=== PATIENT | male | born 1955 | race Caucasian/White ===

== ENCOUNTER 2017-09-22 09:49 | Observation (INO) | payer OTHER ==
[2017-09-22] MEDS ORDERED: HEMOQUE TEST 1 EACH EACH ONE ×2 (10:34→10:38)
[2017-09-22] MEDS ORDERED: HEMOQUE CONTROL SOLUTION ONE (10:34)
[2017-09-22] MEDS ORDERED: morphine CARPU-JECT 4 MG/1 ML DISP.SYRIN IVPUSH ONE ×2 (10:36→11:31)
[2017-09-22] MEDS ORDERED: SODIUM CHLORIDE 1,000 ML IV ONE (10:39)
[2017-09-22] MEDS ORDERED: ONDANSETRON 4 MG/2 ML VIAL IVPUSH ONE ×2 (10:39→11:20)
--- NOTE | 2017-09-22 10:43 | PDOC ---
History of Present Illness - General History Source: Patient Exam Limitations: No Limitations - History of Present Illness Initial Comments: 09/22/17 15:14 62 y.o morbidly obese male with PMH of HTN, HLD, DM, and appendectomy, who presents to the emergency room complaining of severe epigastric abdominal pain. He denies nausea, vomiting, diarrhea. Denies fever, chills. Denies sick contact. Denies recent travel. Allergies: penicillin <Amy Bonner - Last Filed: 09/22/17 16:22> <Lesly Flaherty S - Last Filed: 09/22/17 18:59> - General Chief Complaint: Pain Stated Complaint: UPPER ABDOMINAL PAIN Time Seen by Provider: 09/22/17 09:54 Past History <Amy Bonner - Last Filed: 09/22/17 16:22> - Past Medical History COPD: No Diabetes: Yes HTN: Yes Hypercholesterolemia: Yes Other medical history: GOUT? - Suicide/Smoking/Psychosocial Hx Smoking History: Never smoked Have you smoked in the past 12 months: No Hx Alcohol Use: Yes (ONCE A MONTH) Drug/Substance Use Hx: No Substance Use Type: None <Lesly Flaherty S - Last Filed: 09/22/17 18:59> - Past Medical History Allergies/Adverse Reactions: Allergies Allergy/AdvReac Type Severity Reaction Status Date / Time Penicillins Allergy Verified 09/29/14 18:08 Home Medications: Ambulatory Orders Aspirin Coated [Ecotrin -] 81 mg PO HS 09/22/17 Atorvastatin Ca [Lipitor] 40 mg PO HS 09/22/17 Insulin Detemir [Levemir Flextouch] 100 unit SQ BID 09/22/17 Metformin HCl [Glucophage] 1,000 mg PO BID 09/22/17 Valsartan/Hydrochlorothiazide [Valsartan-Hctz 160-25 mg Tab] 1 each PO HS Review of Systems - Review of Systems Able to Perform ROS?: Yes Comments:: 09/22/17 15:15 CONSTITUTIONAL: Absent: fever, no chills, no fatigue EYES: Absent: visual changes ENT: Absent: ear pain, no sore throat CARDIOVASCULAR: Absent: chest pain, no palpitations RESPIRATORY: Absent: cough, no SOB GI: +epigastric pain. Absent: no nausea, no vomiting, no constipation, no diarrhea GENITOURINARY: Absent: dysuria, no frequency, no hematuria MUSCULOSKELETAL: Absent: back pain, no arthralgia, no myalgia SKIN: Absent: rash <Amy Bonner - Last Filed: 09/22/17 16:22> *Physical Exam - Vital Signs Last Vital Signs Temp Pulse Resp BP Pulse Ox 97.9 F 68 15 173/76 98 09/22/17 09:51 09/22/17 12:25 09/22/17 12:25 09/22/17 12:25 09/22/17 12:25 - Physical Exam Comments: 09/22/17 15:15 GENERAL: Well-appearing, well-nourished. In moderate distress, morbidly obese HEENT: Normocephalic, atraumatic. PERRL, EOM intact. CARDIOVASCULAR: Normal S1, S2. Regular rate and rhythm. PULMONARY: Clear to auscultation bilaterally. ABDOMEN: Protuberant belly. Soft, non-distended, non-tender. EXTREMITIES: Femoral artery pulsations equal. Radial pulses equal. Normal ROM in all four extremities. No gross deformities. SKIN: Warm, dry. No rash NEUROLOGICAL: No focal neurological deficits. <Amy Bonner - Last Filed: 09/22/17 16:22> - Vital Signs Last Vital Signs Temp Pulse Resp BP Pulse Ox 97.9 F 55 L 17 188/98 99 09/22/17 09:51 09/22/17 09:51 09/22/17 09:51 09/22/17 09:51 09/22/17 09:51 <Lesly Flaherty S - Last Filed: 09/22/17 18:59> Heart Score/ECG Review #1 General ECG Interpretation: Sinus Rhythm, Normal Rate <Amy Bonner - Last Filed: 09/22/17 16:22> ED Treatment Course - LABORATORY CBC & Chemistry Diagram: 09/22/17 10:20 09/22/17 10:20 - ADDITIONAL ORDERS Additional order review: Laboratory Results 09/22/17 09/22/17 09/22/17 11:00 10:43 10:20 PT with INR INR Sodium Potassium Chloride Carbon Dioxide Anion Gap BUN Creatinine Creat Clearance w eGFR POC Glucometer 202.58669 Random Glucose Calcium Total Bilirubin AST ALT Alkaline Phosphatase Troponin I Total Protein Albumin Total Amylase 58 Lipase 160 Urine Color Yellow Urine Appearance Clear Urine pH 5.0 Ur Specific [place] 1.025 Urine Protein Negative Urine Glucose (UA) Trace Urine Ketones Negative Urine Blood Negative Urine Nitrite Negative Urine Bilirubin Negative Urine Urobilinogen 0.2 Ur Leukocyte Esterase Negative 09/22/17 09/22/17 09/22/17 10:20 10:20 10:20 PT with INR 11.0 INR 0.98 Sodium 136 Potassium 4.6 Chloride 102 Carbon Dioxide 24 Anion Gap 10 BUN 22 H D Creatinine 1.0 Creat Clearance w eGFR > 60 POC Glucometer Random Glucose 194 H D Calcium 9.5 Total Bilirubin 1.0 AST 31 D ALT 27 Alkaline Phosphatase 59 Troponin I < 0.03 L Total Protein 7.5 Albumin 4.2 Total Amylase Lipase Urine Color Urine Appearance Urine pH Ur Specific [place] Urine Protein Urine Glucose (UA) Urine Ketones Urine Blood Urine Nitrite Urine Bilirubin Urine Urobilinogen Ur Leukocyte Esterase 09/22/17 09/22/17 10:43 10:20 RBC 4.76 MCV 87.3 MCHC 33.6 RDW 12.6 MPV 8.9 D Neutrophils % 75.3 Lymphocytes % 15.6 Monocytes % 5.5 Eosinophils % 2.6 Basophils % 1.0 POC Glucometer 202.88598 - Medications Given in the ED: ED Medications Discontinued Medications Generic Name Dose Route Start Last Admin Trade Name Freq PRN Reason Stop Dose Admin Sodium Chloride 1,000 mls @ 1,000 mls/hr 09/22/17 10:39 09/22/17 10:40 Normal Saline - IV 09/22/17 11:38 1,000 mls/hr .Q1H ONE Administration Morphine Sulfate 4 mg 09/22/17 10:36 09/22/17 10:45 Morphine Injection - IVPUSH 09/22/17 10:37 4 mg ONCE ONE Administration Morphine Sulfate 4 mg 09/22/17 11:31 09/22/17 11:37 Morphine Injection - IVPUSH 09/22/17 11:32 4 mg NOW ONE Administration Ondansetron HCl 4 mg 09/22/17 10:39 09/22/17 10:50 Zofran Injection IVPUSH 09/22/17 10:40 4 mg ONCE ONE Administration Ondansetron HCl 4 mg 09/22/17 11:20 09/22/17 11:21 Zofran Injection IVPUSH 09/22/17 11:21 4 mg NOW ONE Administration <Amy Bonner - Last Filed: 09/22/17 16:22> - LABORATORY CBC & Chemistry Diagram: 09/22/17 10:20 09/22/17 10:20 <Lesly Flaherty - Last Filed: 09/22/17 18:59> Medical Decision Making - Critical Care Time Total Critical Care Time (minutes): 30 Critical Care Statement: The care of this patient involved high complexity decision making to prevent further life threatening deterioration of the patient 's condition and/or to evaluate & treat vital organ system(s) failure or risk of failure. - Medical Decision Making 09/22/17 15:16 rule out aortic dissection - Give Morphine IV fluids and zofran - Ordered CT Patient states that he felt more stable after medications and fluids Received the CT at 2:15pm that was negative for aortic dissection and anything of acute significance. <Amy Bonner - Last Filed: 09/22/17 16:22> *DC/Admit/Observation/Transfer - Attestations Scribe Attestion: 09/22/17 15:22 Documentation prepared by DENISE Ernst, acting as medical registrar for Lesly Flaherty MD. <Amy Bonner - Last Filed: 09/22/17 16:22> - Discharge Dispostion Admit: Yes <Lesly Flaherty - Last Filed: 09/22/17 18:59> Diagnosis at time of Disposition: Diabetes 1.5, managed as type 2, Morbid obesity Abdominal pain Qualifiers: Abdominal location: generalized Qualified Code(s): R10.84 - Generalized abdominal pain - Discharge Dispostion Condition at time of disposition: Stable
[2017-09-22] MEDS ORDERED: ONDANSETRON 4 MG/2 ML VIAL ONE ×2 (10:46→11:21)
[2017-09-22] MEDS ORDERED: morphine SULFATE 4 MG/ML VIAL ONE ×2 (10:46→11:31)
[2017-09-22 11:07] LABS: EOSINOPHIL 2.6 % (0-4.5); MCH 29.3 pg (25.7-33.7); MCHC 33.6 g/dl (32.0-35.9); MEAN CELL VOLUME 87.3 fl (80-96); MEAN PLT VOLUME 8.9 fl (7.5-11.1); NEUTROPHILS 75.3 % (42.8-82.8); PLATELET COUNT 273 K/MM3 (134-434); RDW 12.6 % (11.9-15.9); WHITE BLOOD COUNT 9.8 K/mm3 (4.0-10.8)
[2017-09-22 11:22] LABS: URINE APPEARANCE Clear; URINE BILIRUBIN Negative (NEGATIVE); URINE BLOOD Negative (NEGATIVE); URINE GLUCOSE (UA) Trace (NEGATIVE); URINE KETONE Negative (NEGATIVE); URINE LEUK ESTERASE Negative (NEGATIVE); URINE NITRITE Negative (NEGATIVE); URINE PROTEIN Negative (NEGATIVE); URINE UROBILINOGEN 0.2 (0.2-1.0)
[2017-09-22 11:24] LABS: URINE COLOR YELLOW
[2017-09-22 11:28] LABS: INR 0.98 (0.82-1.09)
[2017-09-22 12:07] LABS: ALBUMIN 4.2 g/dl (3.5-5.0); ALK PHOS 59 U/L (32-92); ANION GAP 10 (8-16); CALCIUM 9.5 mg/dl (8.4-10.2); CO2 24 mmol/L (22-28); GLUCOSE,RANDOM 194 mg/dl (74-106); SGOT/AST 31 U/L (10-42); SGPT/ALT 27 U/L (10-40); TOT PROT 7.5 g/dl (6.4-8.3)
[2017-09-22 12:09] LABS: AMYLASE 58 U/L (25-125)
[2017-09-22 18:22] VITALS: BMI 44.4
[2017-09-22] MEDS ORDERED: PNEUMOC 13-VAL CONJ-DIP CRM/PF 0.5 ML DISP.SYRIN IM ONE (18:22)
--- NOTE | 2017-09-22 19:41 | HP ---
CHIEF COMPLAINT: Abdominal Pain PCP: Dr. Letty Cat HISTORY OF PRESENT ILLNESS: This is a 62 y/o man with a past medical history of HTN, HLD, Severe Obesity. Who presents to the ED with abdominal pain, fever, loose stools x today. Patient reports that the pain was sharp, intermittent. Patient denies Chest pain or SOB. He does note having peripheral lower extremity edema. Patient ER course was notable for: (1) CTA- No aortic disection, diffuse hepatic steatosis, mild splenomegaly (2) Troponin- < 0.03 (3) Glucose 190 Recent Travel: None PAST MEDICAL HISTORY: See HPI PAST SURGICAL HISTORY: Social History: Smoking: Never Alcohol: Seldom Drugs: None Lives with , Independent Family History: Mother: Diabetes, Obesity, Cancer- ?Gastric Allergies Penicillins Allergy (Verified 09/29/14 18:08) RASH HOME MEDICATIONS: Home Medications Medication Instructions Recorded Aspirin Coated [Ecotrin -] 81 mg PO HS 09/22/17 Atorvastatin Ca [Lipitor] 40 mg PO HS 09/22/17 Insulin Detemir [Levemir Flextouch] 100 unit SQ BID 09/22/17 Metformin HCl [Glucophage] 1,000 mg PO BID 09/22/17 Valsartan/Hydrochlorothiazide 1 each PO HS 09/22/17 [Valsartan-Hctz 160-25 mg Tab] REVIEW OF SYSTEMS CONSTITUTIONAL: fever, Absent: chills, diaphoresis, generalized weakness, malaise, loss of appetite, weight change HEENT: Absent: rhinorrhea, nasal congestion, throat pain, throat swelling, difficulty swallowing, mouth swelling, ear pain, eye pain, visual changes CARDIOVASCULAR: Absent: chest pain, syncope, palpitations, irregular heart rate, lightheadedness , peripheral edema RESPIRATORY: Absent: cough, shortness of breath, dyspnea with exertion, orthopnea, wheezing, stridor, hemoptysis GASTROINTESTINAL: abdominal pain, diarrhea Absent: abdominal distension, nausea, vomiting, constipation, melena, hematochezia GENITOURINARY: Absent: dysuria, frequency, urgency, hesitancy, hematuria, flank pain, genital pain MUSCULOSKELETAL: Absent: myalgia, arthralgia, joint swelling, back pain, neck pain SKIN: Absent: rash, itching, pallor HEMATOLOGIC/IMMUNOLOGIC: Absent: easy bleeding, easy bruising, lymphadenopathy, frequent infections ENDOCRINE: Absent: unexplained weight gain, unexplained weight loss, heat intolerance, cold intolerance NEUROLOGIC: Absent: headache, focal weakness or paresthesias, dizziness, unsteady gait, seizure, mental status changes, bladder or bowel incontinence PSYCHIATRIC: Absent: anxiety, depression, suicidal or homicidal ideation, hallucinations. PHYSICAL EXAMINATION Vital Signs - 24 hr 09/22/17 09/22/17 09/22/17 09:51 10:30 11:00 Temperature 97.9 F Pulse Rate 55 L Pulse Rate [ 58 L 63 Apical] Respiratory 17 22 16 Rate Blood Pressure 188/98 Blood Pressure 178/98 198/100 [Right Arm] O2 Sat by Pulse 99 98 100 Oximetry (%) 09/22/17 09/22/17 09/22/17 11:30 12:25 16:36 Temperature 97.7 F Pulse Rate 86 Pulse Rate [ 67 68 Apical] Respiratory 15 15 15 Rate Blood Pressure 161/83 Blood Pressure 177/88 173/76 [Right Arm] O2 Sat by Pulse 98 98 98 Oximetry (%) GENERAL: Obese, awake, alert, and fully oriented, in no acute distress. HEAD: Normal with no signs of trauma. EYES: Pupils equal, round and reactive to light, extraocular movements intact, sclera anicteric, conjunctiva clear. No lid lag. EARS, NOSE, THROAT: Ears normal, nares patent, oropharynx clear without exudates. Moist mucous membranes. NECK: Normal range of motion, supple without lymphadenopathy, JVD, or masses. LUNGS: Breath sounds equal, clear to auscultation bilaterally. No wheezes, and no crackles. No accessory muscle use. HEART: Regular rate and rhythm, normal S1 and S2 without murmur, rub or gallop. ABDOMEN: Soft, nontender, not distended, normoactive bowel sounds, no guarding, no rebound, no masses. No hepatomegaly or splenomegaly. MUSCULOSKELETAL: Normal range of motion at all joints. No bony deformities or tenderness. No CVA tenderness. UPPER EXTREMITIES: 2+ pulses, warm, well-perfused. No cyanosis. No clubbing. No peripheral edema. LOWER EXTREMITIES: 2+ pulses, warm, well-perfused. No calf tenderness. +2 pitting B/L peripheral edema. NEUROLOGICAL: Cranial nerves II-XII intact. Slurred speech (dental work, poor dentition). Gait not observed. PSYCHIATRIC: Cooperative. Good eye contact. Appropriate mood and affect. SKIN: Warm, dry, normal turgor, no rashes or lesions noted, normal capillary refill. Laboratory Results - last 24 hr 09/22/17 09/22/17 09/22/17 10:20 10:20 10:20 WBC 9.8 RBC 4.76 Hgb 13.9 Hct 41.6 MCV 87.3 MCH 29.3 MCHC 33.6 RDW 12.6 Plt Count 273 MPV 8.9 D Neutrophils % 75.3 Lymphocytes % 15.6 Monocytes % 5.5 Eosinophils % 2.6 Basophils % 1.0 PT with INR 11.0 INR 0.98 Sodium 136 Potassium 4.6 Chloride 102 Carbon Dioxide 24 Anion Gap 10 BUN 22 H D Creatinine 1.0 Creat Clearance w eGFR > 60 POC Glucometer Random Glucose 194 H D Calcium 9.5 Total Bilirubin 1.0 AST 31 D ALT 27 Alkaline Phosphatase 59 Troponin I Total Protein 7.5 Albumin 4.2 Total Amylase Lipase Urine Color Urine Appearance Urine pH Ur Specific [place] Urine Protein Urine Glucose (UA) Urine Ketones Urine Blood Urine Nitrite Urine Bilirubin Urine Urobilinogen Ur Leukocyte Esterase 09/22/17 09/22/17 09/22/17 10:20 10:20 10:43 WBC RBC Hgb Hct MCV MCH MCHC RDW Plt Count MPV Neutrophils % Lymphocytes % Monocytes % Eosinophils % Basophils % PT with INR INR Sodium Potassium Chloride Carbon Dioxide Anion Gap BUN Creatinine Creat Clearance w eGFR POC Glucometer 202.82472 Random Glucose Calcium Total Bilirubin AST ALT Alkaline Phosphatase Troponin I < 0.03 L Total Protein Albumin Total Amylase 58 Lipase 160 Urine Color Urine Appearance Urine pH Ur Specific [place] Urine Protein Urine Glucose (UA) Urine Ketones Urine Blood Urine Nitrite Urine Bilirubin Urine Urobilinogen Ur Leukocyte Esterase 09/22/17 11:00 WBC RBC Hgb Hct MCV MCH MCHC RDW Plt Count MPV Neutrophils % Lymphocytes % Monocytes % Eosinophils % Basophils % PT with INR INR Sodium Potassium Chloride Carbon Dioxide Anion Gap BUN Creatinine Creat Clearance w eGFR POC Glucometer Random Glucose Calcium Total Bilirubin AST ALT Alkaline Phosphatase Troponin I Total Protein Albumin Total Amylase Lipase Urine Color Yellow Urine Appearance Clear Urine pH 5.0 Ur Specific [place] 1.025 Urine Protein Negative Urine Glucose (UA) Trace Urine Ketones Negative Urine Blood Negative Urine Nitrite Negative Urine Bilirubin Negative Urine Urobilinogen 0.2 Ur Leukocyte Esterase Negative ASSESSMENT/PLAN: This is a 62 y/o man with a pMHx of: HTN, HLD, Severe Obesity. Placed in Observation for Abdominal Pain. Plan: FEN - PO as tolerated - Replete lytes prn - Diabetic, Low Na Diet Code Status: Full Code Dispo: Observation Problem List - Problem (1) Abdominal pain Assessment/Plan: - r/o gastritis vs SBO vs malignancy - CTAP reviewed- diffuse hepatic steatosis, mild splenomegaly - No leukocytosis, afebrile - IVF, Morphine given in ED, with relief - Serial abdominal exams - Repeat CBC, BMP in am - Diabetic, Low Na diet as tolerated - f/u colonoscopy outpatient Code(s): R10.9 - UNSPECIFIED ABDOMINAL PAIN Qualifiers: Abdominal location: generalized Qualified Code(s): R10.84 - Generalized abdominal pain (2) Diabetes 1.5, managed as type 2 Assessment/Plan: Not Controlled - BGMs - ISS - Hold Metformin 2/[address] - HgbA1C in am - f/u with Endocrinology in outpatient Code(s): E10.9 - TYPE 1 DIABETES MELLITUS WITHOUT COMPLICATIONS (3) Hypertension Assessment/Plan: - Sub Optimal Control - Continue home med - Monitor BP - Monitor renal function Code(s): I10 - ESSENTIAL (PRIMARY) HYPERTENSION (4) Morbid obesity Assessment/Plan: - Low Carb Calorie Diet - Patient counseled on improving lifestyle choices, he is amendable - Exercise Code(s): E66.01 - MORBID (SEVERE) OBESITY DUE TO EXCESS CALORIES (5) DVT prophylaxis Assessment/Plan: - OOB - SCDs Code(s): [id number] - Visit type - Emergency Visit Emergency Visit: Yes ED Registration Date: 09/22/17 Care time: The patient presented to the Emergency Department on the above date and was hospitalized for further evaluation of their emergent condition. - New Patient This patient is new to me today: Yes Date on this admission: 09/22/17 - Critical Care Critical Care patient: No
[2017-09-23 06:31] VITALS: BP 153/69; PULSE 60; TEMP 97.4
[2017-09-23] MEDS ORDERED: PATIENT'S OWN MEDICATION (NON-FORMULARY) (Metformin Hcl [Glucophage] 1,000 MG) PO SCH (07:00)
[2017-09-23 08:35] LABS: ALBUMIN 3.3 g/dl (3.5-5.0); ALK PHOS 56 U/L (32-92); ANION GAP 7 (8-16); BILIRUBIN,TOTAL 1.2 mg/dl (0.2-1.0); CALCIUM 8.9 mg/dl (8.4-10.2); CO2 27 mmol/L (22-28); GLUCOSE,RANDOM 260 mg/dl (74-106); SGOT/AST 17 U/L (10-42); SGPT/ALT 22 U/L (10-40); TOT PROT 6.1 g/dl (6.4-8.3)
[2017-09-23 09:03] LABS: MCH 29.5 pg (25.7-33.7); MCHC 34.1 g/dl (32.0-35.9); MEAN CELL VOLUME 86.7 fl (80-96); MEAN PLT VOLUME 8.8 fl (7.5-11.1); PLATELET COUNT 227 K/MM3 (134-434); RDW 12.7 % (11.9-15.9); WHITE BLOOD COUNT 7.9 K/mm3 (4.0-10.8)
--- NOTE | 2017-09-23 09:16 | DS ---
Physical Exam: SUBJECTIVE: Patient seen and examined, reports feeling better, tolerating regular diet, denies any abdominal pain OBJECTIVE: patient is a 62 y/o man with a past medical history of HTN, HLD, Severe Obesity. Who presents to the ED with abdominal pain, fever, loose stools x today. Patient reports that the pain was sharp, intermittent. Patient denies Chest pain or SOB. He does note having peripheral lower extremity edema. Patient ER course was notable for: (1) CTA- No aortic disection, diffuse hepatic steatosis, mild splenomegaly (2) Troponin- < 0.03 (3) Glucose 190 Vital Signs Period Temp Pulse Resp BP Sys/[place] Pulse Ox Last 24 Hr 97.4 F-97.9 F 55-86 15-22 153-198/69-100 98-100 PHYSICAL EXAM GENERAL: obese, The patient is awake, alert, and fully oriented, in no acute distress. HEAD: Normal with no signs of trauma. EYES: PERRL, extraocular movements intact, sclera anicteric, conjunctiva clear. ENT: Ears normal, nares patent, oropharynx clear without exudates, moist mucous membranes. NECK: Trachea midline, full range of motion, supple. LUNGS: Breath sounds equal, clear to auscultation bilaterally, no wheezes, no crackles, no accessory muscle use. HEART: Regular rate and rhythm, S1, S2 without murmur, rub or gallop. ABDOMEN: obese, Soft, nontender, nondistended, normoactive bowel sounds, no guarding, no rebound, no hepatosplenomegaly, no masses. EXTREMITIES: 2+ pulses, warm, well-perfused, no edema. NEUROLOGICAL: Cranial nerves II through XII grossly intact. Normal speech, gait not observed. PSYCH: Normal mood, normal affect. SKIN: Warm, dry, normal turgor, no rashes or lesions noted. LABS Laboratory Results - last 24 hr 09/22/17 09/22/17 09/22/17 10:20 10:20 10:20 WBC 9.8 RBC 4.76 Hgb 13.9 Hct 41.6 MCV 87.3 MCH 29.3 MCHC 33.6 RDW 12.6 Plt Count 273 MPV 8.9 D Neutrophils % 75.3 Lymphocytes % 15.6 Monocytes % 5.5 Eosinophils % 2.6 Basophils % 1.0 PT with INR 11.0 INR 0.98 Sodium 136 Potassium 4.6 Chloride 102 Carbon Dioxide 24 Anion Gap 10 BUN 22 H D Creatinine 1.0 Creat Clearance w eGFR > 60 POC Glucometer Random Glucose 194 H D Calcium 9.5 Total Bilirubin 1.0 AST 31 D ALT 27 Alkaline Phosphatase 59 Troponin I Total Protein 7.5 Albumin 4.2 Total Amylase Lipase Urine Color Urine Appearance Urine pH Ur Specific [place] Urine Protein Urine Glucose (UA) Urine Ketones Urine Blood Urine Nitrite Urine Bilirubin Urine Urobilinogen Ur Leukocyte Esterase 09/22/17 09/22/17 09/22/17 10:20 10:20 10:43 WBC RBC Hgb Hct MCV MCH MCHC RDW Plt Count MPV Neutrophils % Lymphocytes % Monocytes % Eosinophils % Basophils % PT with INR INR Sodium Potassium Chloride Carbon Dioxide Anion Gap BUN Creatinine Creat Clearance w eGFR POC Glucometer 202.87518 Random Glucose Calcium Total Bilirubin AST ALT Alkaline Phosphatase Troponin I < 0.03 L Total Protein Albumin Total Amylase 58 Lipase 160 Urine Color Urine Appearance Urine pH Ur Specific [place] Urine Protein Urine Glucose (UA) Urine Ketones Urine Blood Urine Nitrite Urine Bilirubin Urine Urobilinogen Ur Leukocyte Esterase 09/22/17 09/22/17 09/23/17 11:00 23:42 06:21 WBC RBC Hgb Hct MCV MCH MCHC RDW Plt Count MPV Neutrophils % Lymphocytes % Monocytes % Eosinophils % Basophils % PT with INR INR Sodium Potassium Chloride Carbon Dioxide Anion Gap BUN Creatinine Creat Clearance w eGFR POC Glucometer 243 256 Random Glucose Calcium Total Bilirubin AST ALT Alkaline Phosphatase Troponin I Total Protein Albumin Total Amylase Lipase Urine Color Yellow Urine Appearance Clear Urine pH 5.0 Ur Specific [place] 1.025 Urine Protein Negative Urine Glucose (UA) Trace Urine Ketones Negative Urine Blood Negative Urine Nitrite Negative Urine Bilirubin Negative Urine Urobilinogen 0.2 Ur Leukocyte Esterase Negative 09/23/17 09/23/17 07:30 07:30 WBC 7.9 RBC 4.46 Hgb 13.2 Hct 38.7 MCV 86.7 MCH 29.5 MCHC 34.1 RDW 12.7 Plt Count 227 MPV 8.8 Neutrophils % Lymphocytes % Monocytes % Eosinophils % Basophils % PT with INR INR Sodium 135 L Potassium 4.1 Chloride 101 Carbon Dioxide 27 Anion Gap 7 L BUN 18 Creatinine 1.0 Creat Clearance w eGFR > 60 POC Glucometer Random Glucose 260 H D Calcium 8.9 Total Bilirubin 1.2 H AST 17 D ALT 22 Alkaline Phosphatase 56 Troponin I Total Protein 6.1 L Albumin 3.3 L D Total Amylase Lipase Urine Color Urine Appearance Urine pH Ur Specific [place] Urine Protein Urine Glucose (UA) Urine Ketones Urine Blood Urine Nitrite Urine Bilirubin Urine Urobilinogen Ur Leukocyte Esterase IMAGING ct of abd/pelvis: no evidence of aneursym, hepatic steatosis HOSPITAL COURSE: Patient was admitted from the emergency department to observation for abdominal pain. ct of abomen reviewed, no leukocytosis, patient is afebrile. patient remained pain free and is tolerating diet. patient has a past medical history of IDDM, type 2, metfomin held secondary to IV contrast. blood pressure remained at goal, patient's home medications were continued. PLAN - discharge home with bland diet, advance as tolerated - strict follow up with PCP within 1 week. - f/u colonoscopy outpatient Date of Admission:09/22/17 Date of Discharge: 09/23/17 Minutes to complete discharge: 45 Discharge Summary Reason For Visit: UPPER ABDOMINAL PAIN Current Active Problems Abdominal pain (Acute) DVT prophylaxis (Acute) Diabetes 1.5, managed as type 2 (Acute) Morbid obesity (Acute) Condition: Stable - Instructions Referrals: Letty Cat MD [Primary Care Provider] - - Home Medications Comprehensive Discharge Medication List: Ambulatory Orders Aspirin Coated [Ecotrin -] 81 mg PO HS 09/22/17 Atorvastatin Ca [Lipitor] 40 mg PO HS 09/22/17 Insulin Detemir [Levemir Flextouch] 100 unit SQ BID 09/22/17 Metformin HCl [Glucophage] 1,000 mg PO BID 09/22/17 Valsartan/Hydrochlorothiazide [Valsartan-Hctz 160-25 mg Tab] 1 each PO HS
[2017-09-23] MEDS ORDERED: FLU VACCINE QUAD 60 MCG/0.5 ML (MDV 17-18) IM ONE (12:00)
[2017-09-23] MEDS ORDERED: PNEUMOCOCCAL 23 VACCINE 0.5 ML VIAL IM ONE (12:00)
[2017-09-23] MEDS ORDERED: VALSARTAN 160 MG TABLET (UD) PO SCH (22:00)
[2017-09-23] MEDS ORDERED: HYDROCHLOROTHIAZIDE 25 MG TABLET (FP) PO SCH (22:00)
[2017-09-23] MEDS ORDERED: ASPIRIN COATED 81 MG TABLET.EC PO SCH (22:00)
[2017-09-23] MEDS ORDERED: ATORVASTATIN CA 40 MG TABLET (FP) PO SCH (22:00)
[2017-09-23] MEDS ORDERED: PATIENT'S OWN MEDICATION (NON-FORMULARY) (Valsartan/Hydrochlorothiazide [Valsartan-Hctz 16 PO SCH (22:00)
--- NOTE | 2017-09-25 17:29 | EKG ---
Test Reason : Blood Pressure : / mmHG Vent. Rate : 062 BPM Atrial Rate : 062 BPM P-R Int : 178 ms QRS Dur : 094 ms QT Int : 448 ms P-R-T Axes : 031 030 066 degrees QTc Int : 454 ms NORMAL SINUS RHYTHM NONSPECIFIC T WAVE ABNORMALITY ABNORMAL ECG WHEN COMPARED WITH ECG OF 22-SEP-2017 09:58, NO SIGNIFICANT CHANGE WAS FOUND Confirmed by DANIAL GUY MD ([id number]) on 09/25/2017 5:28:56 PM Referred By: ASHLEY SULLIVAN Confirmed By:DANIAL GUY MD
== END 2017-09-23 14:15 | disposition home or self-care (01) ==
LOC: FER 09:49 → FM/S 16:36
PROVIDERS: ADMIT Internal Medicine; ATTEND Nurse Practitioner Family
PROC: 3E0337Z Introduction of Electrolytic and Water Balance Substance into Peripheral Vein, Percutaneous Approach (ICD-10-PCS; principal; 2017-09-22)
PROC: 3E033NZ Introduction of Analgesics, Hypnotics, Sedatives into Peripheral Vein, Percutaneous Approach (ICD-10-PCS; 2017-09-22)
PROC: 3E033GC Introduction of Other Therapeutic Substance into Peripheral Vein, Percutaneous Approach (ICD-10-PCS; 2017-09-22)
DX: R10.84 Generalized abdominal pain (principal); E11.9 Type 2 diabetes mellitus without complications; Z79.4 Long term (current) use of insulin; Z79.84 Long term (current) use of oral hypoglycemic drugs; I10 Essential (primary) hypertension; E78.5 Hyperlipidemia, unspecified; R60.0 Localized edema; E66.09 Other obesity due to excess calories; Z68.41 Body mass index [BMI] 40.0-44.9, adult; Z79.82 Long term (current) use of aspirin
CPT/HCPCS: 36415; 71275-TC; 74174-TC; 80053; 81003; 82150; 83036; 83690; 84484; 85025; 85027; 85610; 87086; 90688; 90732; 93005; 99285-25; G0009; G0378

== ENCOUNTER 2020-09-18 08:01 | Day surgery (SDC) | payer OTHER ==
[2020-09-17 13:31] VITALS: BMI 39.4
[2020-09-18] MEDS ORDERED: LIDOCAINE HCL/PF 2% SDV 5ML VIAL ONE (08:33)
[2020-09-18] MEDS ORDERED: PROPOFOL 20 ML ONE (08:34)
[2020-09-18 08:37] VITALS: TEMP 97.7
[2020-09-18 09:16] VITALS: BP 143/86; PULSE 98
== END 2020-09-18 09:25 | disposition home or self-care (01) ==
LOC: FASU-ENDO 08:01
PROVIDERS: ATTEND Internal Medicine Gastroenterology
PROC: 0DJ08ZZ Inspection of Upper Intestinal Tract, Via Natural or Artificial Opening Endoscopic (ICD-10-PCS; principal; 2020-09-18 08:30)
DX: Z53.09 Procedure and treatment not carried out because of other contraindication (principal); I48.91 Unspecified atrial fibrillation; R11.0 Nausea; R10.9 Unspecified abdominal pain; R63.4 Abnormal weight loss; Z68.39 Body mass index [BMI] 39.0-39.9, adult
CPT/HCPCS: 82962

== ENCOUNTER 2020-10-06 07:09 | Inpatient (IN) | payer OTHER ==
[2020-10-06] MEDS ORDERED: SODIUM CHLORIDE 1,000 ML IV STA ×2 (07:29→11:24)
[2020-10-06] MEDS ORDERED: FAMOTIDINE 20 MG/50 ML IVPB 20 MG/50 ML MG IVPB ONE ×2 (07:29→07:55)
[2020-10-06] MEDS ORDERED: morphine CARPU-JECT 4 MG/1 ML DISP.SYRIN IVPUSH ONE ×2 (07:29→11:24)
[2020-10-06] MEDS ORDERED: ONDANSETRON 4 MG/2 ML VIAL IVPUSH ONE (07:29)
[2020-10-06] MEDS ORDERED: VALSARTAN 160 MG TABLET PO ONE (07:43)
[2020-10-06] MEDS ORDERED: HYDROCHLOROTHIAZIDE 25 MG TABLET (FP) PO ONE (07:43)
[2020-10-06] MEDS ORDERED: ONDANSETRON 4 MG/2 ML VIAL ONE (07:56)
[2020-10-06] MEDS ORDERED: morphine SULFATE 4 MG/ML VIAL ONE ×2 (07:56→11:27)
[2020-10-06] MEDS ORDERED: HYDROCHLOROTHIAZIDE 25 MG TABLET (FP) ONE (07:57)
[2020-10-06 08:32] LABS: BASO % 1.8 % (0-2.0); EOS % 5.5 % (0-4.5); HEMATOCRIT 38.4 % (35.4-49); LYMPH % 13.4 % (8-40); MCH 26.2 pg (25.7-33.7); MCHC 31.2 g/dl (32.0-35.9); MEAN CELL VOLUME 84.1 fl (80-96); MONO % 10.3 % (3.8-10.2); PLATELET COUNT 339 K/MM3 (134-434); RBC 4.57 M/mm3 (4.00-5.60); RDW 13.8 % (11.9-15.9); WHITE BLOOD COUNT 8.5 K/mm3 (4.0-10.8)
[2020-10-06 08:36] LABS: ALBUMIN 2.7 g/dl (3.4-5.0); BILIRUBIN,TOTAL 1.4 mg/dl (0.2-1); CALCIUM 8.4 mg/dl (8.5-10); TOT PROT 6.1 g/dl (6.4-8.2)
[2020-10-06 08:41] LABS: INR 1.66 (0.82-1.09)
[2020-10-06 12:49] VITALS: BMI 39.3
[2020-10-06] MEDS: APIXABAN 5 MG TABLET PO SCH ×2 (13:30→21:13)
[2020-10-06] MEDS ORDERED: SODIUM CHLORIDE 1,000 ML IV SCH (14:30)
[2020-10-06] MEDS: ONDANSETRON 4 MG/2 ML VIAL IVPUSH PRN (15:10)
[2020-10-06] MEDS: SODIUM CHLORIDE 1,000 ML IV SCH (15:10)
[2020-10-06] MEDS: FAMOTIDINE 20 MG TABLET PO SCH (21:14)
[2020-10-06] MEDS: ATORVASTATIN CA 40 MG TABLET (FP) PO SCH (21:14)
[2020-10-06] MEDS: INSULIN (LEVEMIR) 100 UNITS/ML UNITS SQ SCH (21:17)
[2020-10-06] MEDS: ACETAMINOPHEN 1000 MG/100 ML BAG IVPB PRN (21:24)
[2020-10-07 07:52] LABS: BASO % 1.2 % (0-2.0); EOS % 5.3 % (0-4.5); HEMATOCRIT 34.1 % (35.4-49); HEMOGLOBIN 10.6 GM/dl (11.7-16.9); LYMPH % 13.2 % (8-40); MCH 26.4 pg (25.7-33.7); MCHC 31.1 g/dl (32.0-35.9); MEAN CELL VOLUME 84.9 fl (80-96); MEAN PLT VOLUME 9.2 fl (7.5-11.1); MONO % 11.2 % (3.8-10.2); NEUT % 69.1 % (42.8-82.8); PLATELET COUNT 295 K/MM3 (134-434); RBC 4.02 M/mm3 (4.00-5.60); RDW 13.7 % (11.9-15.9); WHITE BLOOD COUNT 8.9 K/mm3 (4.0-10.8)
[2020-10-07 08:04] LABS: MAGNESIUM 1.7 mg/dL (1.8-2.4); PHOSPHOROUS 3.2 mg/dl (2.5-4.9)
[2020-10-07] MEDS: VALSARTAN 160 MG TABLET PO SCH (09:40)
[2020-10-07] MEDS: FAMOTIDINE 20 MG TABLET PO SCH ×2 (09:40→21:23)
[2020-10-07] MEDS: APIXABAN 5 MG TABLET PO SCH ×2 (09:40→21:22)
[2020-10-07] MEDS: ONDANSETRON 4 MG/2 ML VIAL IVPUSH PRN (10:34)
[2020-10-07] MEDS: ACETAMINOPHEN 1000 MG/100 ML BAG IVPB PRN (10:35)
[2020-10-07] MEDS ORDERED: MAGNESIUM 2GM/50ML STERILE WATER IVPB IVPB ONE (12:06)
[2020-10-07 13:11] LABS: ALBUMIN 2.2 g/dl (3.4-5.0); BILIRUBIN,TOTAL 1.9 mg/dl (0.2-1); CALCIUM 7.8 mg/dl (8.5-10); TOT PROT 5.2 g/dl (6.4-8.2)
[2020-10-07] MEDS: SODIUM CHLORIDE 1,000 ML IV SCH (17:55)
[2020-10-07] MEDS ORDERED: ACETAMINOPHEN 325 MG TABLET (FP) PO ONE (18:09)
[2020-10-07] MEDS: INSULIN (LEVEMIR) 100 UNITS/ML UNITS SQ SCH (21:22)
[2020-10-07] MEDS: ATORVASTATIN CA 40 MG TABLET (FP) PO SCH (21:23)
[2020-10-08] MEDS: ONDANSETRON 4 MG/2 ML VIAL IVPUSH PRN ×2 (01:26→17:55)
[2020-10-08] MEDS ORDERED: ACETAMINOPHEN 1000 MG/100 ML BAG IVPB ONE (06:44)
[2020-10-08] MEDS ORDERED: SODIUM CHLORIDE 1,000 ML IV STA (07:57)
[2020-10-08] MEDS ORDERED: LACTATED RINGERS SOLUTION 1,000 ML/1,000 ML INFUS.BAG IV SCH ×2 (09:10→15:30)
[2020-10-08 09:25] LABS: BASO % 1.1 % (0-2.0); CALCIUM 7.6 mg/dl (8.5-10); CREATININE 0.9 mg/dl (0.55-1.3); EOS % 4.7 % (0-4.5); HEMATOCRIT 31.5 % (35.4-49); HEMOGLOBIN 10.3 GM/dl (11.7-16.9); LYMPH % 14.1 % (8-40); MCH 27.4 pg (25.7-33.7); MCHC 32.8 g/dl (32.0-35.9); MEAN CELL VOLUME 83.5 fl (80-96); MEAN PLT VOLUME 8.9 fl (7.5-11.1); NEUT % 68.1 % (42.8-82.8); PLATELET COUNT 352 K/MM3 (134-434); RBC 3.77 M/mm3 (4.00-5.60); RDW 13.6 % (11.9-15.9); TOT PROT 4.8 g/dl (6.4-8.2); WHITE BLOOD COUNT 9.2 K/mm3 (4.0-10.8)
[2020-10-08] MEDS: APIXABAN 5 MG TABLET PO SCH ×2 (09:42→21:55)
[2020-10-08] MEDS: VALSARTAN 160 MG TABLET PO SCH (09:44)
[2020-10-08] MEDS: FAMOTIDINE 20 MG TABLET PO SCH ×2 (09:46→21:55)
[2020-10-08] MEDS ORDERED: MEROPENEM 1 GM VIAL (RESTRICTED TO ID) IVPB ONE (15:17)
[2020-10-08] MEDS ORDERED: DEXTROSE 5%-WATER 100 ML IVPB ONE (15:18)
[2020-10-08] MEDS: MEROPENEM 1 GM in DEXTROSE 5%-WATER 100 ML IVPB SCH (15:55)
[2020-10-08] MEDS: SODIUM CHLORIDE 1,000 ML IV SCH (15:56)
[2020-10-08] MEDS: ATORVASTATIN CA 40 MG TABLET (FP) PO SCH (21:55)
[2020-10-08] MEDS: INSULIN (LEVEMIR) 100 UNITS/ML UNITS SQ SCH (21:58)
[2020-10-09] MEDS ORDERED: MEROPENEM 1 GM VIAL (RESTRICTED TO ID) IVPB ONE ×3 (02:24→17:25)
[2020-10-09] MEDS ORDERED: DEXTROSE 5%-WATER 100 ML IVPB ONE ×3 (02:25→17:25)
[2020-10-09] MEDS: MEROPENEM 1 GM in DEXTROSE 5%-WATER 100 ML IVPB SCH ×3 (03:24→17:31)
[2020-10-09 08:10] LABS: INR 1.87 (0.83-1.09); PROTHROMBIN TIME (PATIENT) 22.6 SEC (9.7-13.0)
[2020-10-09 08:13] LABS: BASO % 0.9 % (0-2.0); EOS % 5.9 % (0-4.5); HEMATOCRIT 30.2 % (35.4-49); HEMOGLOBIN 9.7 GM/dL (11.7-16.9); LYMPH % 14.9 % (8-40); MCH 26.8 pg (25.7-33.7); MCHC 32.2 g/dl (32.0-35.9); MEAN CELL VOLUME 83.2 fl (80-96); MEAN PLT VOLUME 9.3 fl (7.5-11.1); MONO % 13.4 % (3.8-10.2); NEUT % 64.9 % (42.8-82.8); PLATELET COUNT 273 K/MM3 (134-434); RBC 3.63 M/mm3 (4.00-5.60); RDW 14.8 % (11.9-15.9); WHITE BLOOD COUNT 7.2 K/mm3 (4.0-10.0)
[2020-10-09 08:24] LABS: ALBUMIN 1.8 g/dl (3.4-5.0); BLOOD UREA NITROGEN 12.7 mg/dL (7-18); CALCIUM 7.8 mg/dL (8.5-10.1)
[2020-10-09 08:27] LABS: CREATININE 0.7 mg/dL (0.55-1.3)
[2020-10-09 08:29] LABS: TOT PROT 5.2 g/dl (6.4-8.2)
[2020-10-09] MEDS: ONDANSETRON 4 MG/2 ML VIAL IVPUSH PRN ×2 (10:26→23:35)
[2020-10-09] MEDS: APIXABAN 5 MG TABLET PO SCH (10:29)
[2020-10-09] MEDS: VALSARTAN 160 MG TABLET PO SCH (10:29)
[2020-10-09] MEDS: FAMOTIDINE 20 MG TABLET PO SCH ×2 (10:29→22:51)
[2020-10-09] MEDS ORDERED: LACTATED RINGERS SOLUTION 1,000 ML/1,000 ML INFUS.BAG IV SCH (15:45)
[2020-10-09] MEDS ORDERED: HEPARIN NA (PORCINE) 5,000 UNITS/ML 1ML VIAL IVPUSH PRN ×2 (17:11)
[2020-10-09] MEDS: INSULIN (LEVEMIR) 100 UNITS/ML UNITS SQ SCH (22:49)
[2020-10-09] MEDS: ATORVASTATIN CA 40 MG TABLET (FP) PO SCH (22:51)
[2020-10-09] MEDS: HEPARIN SOD,PORK IN 0.45% NACL 25,000 UNITS/500 ML INFUS.BAG IVPB SCH (23:35)
[2020-10-10] MEDS ORDERED: DEXTROSE 5%-WATER 100 ML IVPB ONE ×3 (01:45→18:04)
[2020-10-10] MEDS ORDERED: MEROPENEM 1 GM VIAL (RESTRICTED TO ID) IVPB ONE ×3 (01:45→18:04)
[2020-10-10] MEDS: MEROPENEM 1 GM in DEXTROSE 5%-WATER 100 ML IVPB SCH ×3 (02:30→18:32)
[2020-10-10 08:00] LABS: HEMATOCRIT 31.1 % (35.4-49); HEMOGLOBIN 10.3 GM/dL (11.7-16.9); MCH 27.1 pg (25.7-33.7); MEAN PLT VOLUME 8.8 fl (7.5-11.1); PLATELET COUNT 286 K/MM3 (134-434); RBC 3.79 M/mm3 (4.00-5.60); RDW 14.8 % (11.9-15.9)
[2020-10-10 09:00] LABS: ALBUMIN 1.8 g/dl (3.4-5.0); BILIRUBIN,TOTAL 1.2 mg/dL (0.2-1); BLOOD UREA NITROGEN 9.2 mg/dL (7-18); CALCIUM 7.7 mg/dL (8.5-10.1); CREATININE 0.7 mg/dL (0.55-1.3); TOT PROT 5.1 g/dl (6.4-8.2)
[2020-10-10] MEDS: VALSARTAN 160 MG TABLET PO SCH (11:24)
[2020-10-10] MEDS: FAMOTIDINE 20 MG TABLET PO SCH ×2 (11:24→21:10)
[2020-10-10] MEDS ORDERED: INSULIN (LEVEMIR) 100 UNITS/ML UNITS SQ SCH (15:47)
[2020-10-10] MEDS: LACTATED RINGERS SOLUTION 1,000 ML/1,000 ML INFUS.BAG IV SCH (18:01)
[2020-10-10] MEDS: HEPARIN SOD,PORK IN 0.45% NACL 25,000 UNITS/500 ML INFUS.BAG IVPB SCH (18:31)
[2020-10-10] MEDS: ATORVASTATIN CA 40 MG TABLET (FP) PO SCH (21:10)
[2020-10-11] MEDS ORDERED: MEROPENEM 1 GM VIAL (RESTRICTED TO ID) IVPB ONE ×3 (00:33→17:32)
[2020-10-11] MEDS ORDERED: DEXTROSE 5%-WATER 100 ML IVPB ONE ×3 (00:34→17:32)
[2020-10-11] MEDS: LACTATED RINGERS SOLUTION 1,000 ML/1,000 ML INFUS.BAG IV SCH ×2 (00:39→17:05)
[2020-10-11] MEDS: ONDANSETRON 4 MG/2 ML VIAL IVPUSH PRN ×2 (00:40→09:35)
[2020-10-11] MEDS: MEROPENEM 1 GM in DEXTROSE 5%-WATER 100 ML IVPB SCH ×4 (01:02→19:38)
[2020-10-11 08:27] LABS: BASO % 0.9 % (0-2.0); EOS % 6.7 % (0-4.5); HEMATOCRIT 29.4 % (35.4-49); HEMOGLOBIN 9.7 GM/dL (11.7-16.9); LYMPH % 15.2 % (8-40); MCH 27.1 pg (25.7-33.7); MCHC 32.9 g/dl (32.0-35.9); MEAN CELL VOLUME 82.3 fl (80-96); MONO % 10.9 % (3.8-10.2); NEUT % 66.3 % (42.8-82.8); PLATELET COUNT 301 K/MM3 (134-434); RBC 3.57 M/mm3 (4.00-5.60); RDW 14.7 % (11.9-15.9); WHITE BLOOD COUNT 5.9 K/mm3 (4.0-10.0)
[2020-10-11] MEDS: FAMOTIDINE 20 MG TABLET PO SCH (09:41)
[2020-10-11] MEDS: VALSARTAN 160 MG TABLET PO SCH (09:41)
[2020-10-11] MEDS ORDERED: DOCUSATE SODIUM 100 MG CAPSULE (FP) PO ONE (10:00)
[2020-10-11 10:07] LABS: BLOOD UREA NITROGEN 9.3 mg/dL (7-18); CREATININE 0.6 mg/dL (0.55-1.3)
[2020-10-11 10:10] LABS: PHOSPHOROUS 2.6 mg/dL (2.5-4.9)
[2020-10-11 10:11] LABS: BILIRUBIN,TOTAL 0.9 mg/dL (0.2-1)
[2020-10-11 10:52] LABS: ALBUMIN 1.7 g/dl (3.4-5.0); CALCIUM 7.9 mg/dL (8.5-10.1)
[2020-10-11 10:59] LABS: MAGNESIUM 1.7 mg/dL (1.8-2.4)
[2020-10-11 14:19] VITALS: BP 154/61; PULSE 98; TEMP 98.1
[2020-10-11 17:07] LABS: HEP B CORE AB, TOT Negative (Negative)
== END 2020-10-11 19:27 | disposition short-term general hospital (02) | DRG 444 ==
LOC: FER 07:09 → FM/S 11:57 → J7W 10-08 13:39
PROVIDERS: ADMIT Internal Medicine; ATTEND Internal Medicine
DX: K81.0 Acute cholecystitis (principal); K85.90 Acute pancreatitis without necrosis or infection, unspecified; I48.92 Unspecified atrial flutter; J90 Pleural effusion, not elsewhere classified; C74.90 Malignant neoplasm of unspecified part of unspecified adrenal gland; E78.5 Hyperlipidemia, unspecified; E11.9 Type 2 diabetes mellitus without complications; I10 Essential (primary) hypertension; K76.9 Liver disease, unspecified; I48.91 Unspecified atrial fibrillation; R97.0 Elevated carcinoembryonic antigen [CEA]; R59.0 Localized enlarged lymph nodes; M10.9 Gout, unspecified; E83.42 Hypomagnesemia; I16.0 Hypertensive urgency; E66.01 Morbid (severe) obesity due to excess calories; Z68.39 Body mass index [BMI] 39.0-39.9, adult; W18.30XA Fall on same level, unspecified, initial encounter; Y92.230 Patient room in hospital as the place of occurrence of the external cause
CPT/HCPCS: 36415; 70450-TC; 71046-TC-FY; 71250-TC; 73562-TC-LT-FY; 74176-TC; 74177-TC; 78226-TC; 80053; 81003; 82150; 82378; 82962; 83036; 83690; 83735; 84100; 84443; 84478; 84484; 85025; 85027; 85610; 85730; 86704; 86706; 86707; 86708; 86709; 86803; 86850; 86900; 86901; 87340; 93005; 97116-GP; 97161-GP; 99285-25; A9537; C9803; J0131; Q9967; U0003